=== PATIENT | female | born 2000 | race Caucasian/White ===

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

== ENCOUNTER → 2022-06-07 | Outpatient (CLI) | payer BC, OTHER ==
[~2022-06-07] MED LIST: NAPROSYN500 MG PO; ZOFRAN4 MG PO
[2022-06-07 13:47] LABS: BUN/CREATININE RATIO 22 (0-10)
== END ==
LOC: LAB 12:46
PROVIDERS: Nurse Practitioner
DX: E10.9 Type 1 diabetes mellitus without complications (principal)
CPT/HCPCS: 36415; 80048; 80061; 82043; 82570; 84443